=== PATIENT | female | born 1955 | race Caucasian/White ===

== ENCOUNTER → 2016-06-24 | Outpatient (REF) | payer BC ==
[~2016-06-24] MED LIST: ASPI1TAB PO; HYDR25TAB PO; LEVO100T5 PO; LEXA1TAB2 PO; LISI-542 PO; METF1000 PO; OMEP40CA2 PO; ZOCO10TA PO; ZYRT10CA PO
== END | disposition home or self-care (01) ==
LOC: M SFHCLERA 13:21
PROVIDERS: ATTEND Nurse Practitioner Family
DX: J02.9 Acute pharyngitis, unspecified (principal)

== ENCOUNTER → 2016-08-02 | Outpatient (REF) | payer BC ==
[2016-08-02 17:23] LABS: BASO % 0.6 % (0.0-1.0); EOS # 0.3 K/mm3 (0.0-0.50); LARGE UNSTAINED CELL # 0.2 K/mm3 (0.0-0.4); LARGE UNSTAINED CELL % 2.5 % (0.0-4.0); LYMPH # 2.2 K/mm3 (1.5-4.5); LYMPH % 32.3 % (24.0-44.0); MEAN CORPUSCULAR HEMOGLOBIN 28.7 pg (27.0-33.0); MEAN CORPUSCULAR HGB CONC 32.2 g/dl (32.0-36.5); MEAN CORPUSCULAR VOLUME 89.1 fl (80.0-96.0); MONO # 0.3 K/mm3 (0.0-0.8); MONO % 3.9 % (0.0-5.0); NEUTROPHILS # 3.8 K/mm3 (1.8-7.7); NEUTROPHILS % 56.6 % (36.0-66.0); PLATELET COUNT, AUTOMATED 273 k/mm3 (150-450); RED CELL DISTRIBUTION WIDTH 13.1 % (11.5-14.5); WHITE BLOOD COUNT 6.7 K/mm3 (4.0-10.0)
[2016-08-02 18:17] LABS: ALBUMIN 4.1 GM/DL (3.2-5.2); ALBUMIN/GLOBULIN RATIO 1.05 (1.00-1.93); BILIRUBIN,TOTAL 0.3 MG/DL (0.2-1.0); CALCIUM LEVEL 9.3 MG/DL (8.5-10.1); CREATININE FOR GFR 1.16 MG/DL (0.55-1.02); GLOMERULAR FILTRATION RATE 50.9 (>51); POTASSIUM SERUM 4.4 MEQ/L (3.5-5.1)
== END ==
LOC: M SFHCPLAZ 10:07
PROVIDERS: ATTEND Nurse Practitioner Family
DX: I10 Essential (primary) hypertension (principal); E03.9 Hypothyroidism, unspecified; E11.9 Type 2 diabetes mellitus without complications; E78.2 Mixed hyperlipidemia

== ENCOUNTER → 2017-01-03 | Outpatient (REF) | payer BC ==
[~2017-01-03] MED LIST changes: -METF1000 PO; +METF10004 PO
== END ==
LOC: M SFHCWAGY 13:25
PROVIDERS: ATTEND Nurse Practitioner Women's Health
DX: Z12.4 Encounter for screening for malignant neoplasm of cervix (principal); N95.2 Postmenopausal atrophic vaginitis

== ENCOUNTER → 2017-01-03 | Outpatient (CLI) | payer BC ==
--- NOTE | 2017-01-03 14:24 | REPMRS ---
Patient History The patient states she had a clinical breast exam in 01/10 Patient is postmenopausal. Family history of colorectal cancer in maternal grandmother at age 50 or over. Digital Woman Screen Mammo: January 03, 2017 - Exam #: [id number] Bilateral CC and MLO view(s) were taken. Technologist: Jane Rosario, Technologist Prior study comparison: November 17, 2015, digital woman screen mammo performed at [facility]. October 12, 2014, digital woman screen mammo performed at [facility] to [facility]. FINDINGS: There are scattered fibroglandular densities. There has been no change in the appearance of the mammogram from the prior studies. There is a mild amount of residual fibroglandular tissue which is fairly symmetric. There is no interval development of dominant mass, architectural distortion, or clustered microcalcification suggestive of malignancy. ASSESSMENT: BI-RADS/ACR category 1 mammogram. Negative. Recommendation Routine screening mammogram in 1 year (for women over age 40). This mammogram was interpreted with the aid of an FDA-approved computer-aided dectection system. Electronically Signed By: Arnaldo Delgado MD 01/03/17 0220
== END ==
LOC: M WHC 13:01
PROVIDERS: ATTEND Nurse Practitioner Women's Health
DX: Z12.31 Encounter for screening mammogram for malignant neoplasm of breast (principal)

== ENCOUNTER → 2017-02-15 | Outpatient (REF) | payer BC ==
[2017-02-15 12:26] LABS: ALBUMIN 3.9 GM/DL (3.2-5.2); BILIRUBIN,TOTAL 0.3 MG/DL (0.2-1.0); CALCIUM LEVEL 9.2 MG/DL (8.8-10.2); CREATININE FOR GFR 1.09 MG/DL (0.55-1.02); FREE T4 1.35 NG/DL (0.76-1.46); GLOMERULAR FILTRATION RATE 54.5 (>45); POTASSIUM SERUM 4.6 MEQ/L (3.5-5.1); TOTAL PROTEIN 7.8 GM/DL (6.4-8.2)
== END ==
LOC: M SFHCPLAZ 10:04
PROVIDERS: ATTEND Nurse Practitioner Family
DX: E11.9 Type 2 diabetes mellitus without complications (principal); E03.9 Hypothyroidism, unspecified; I10 Essential (primary) hypertension

== ENCOUNTER → 2017-08-26 | Outpatient (REF) | payer BC ==
[2017-08-26 18:19] LABS: ESTIMATED AVERAGE GLUCOSE 154 MG/DL (60-110)
[2017-08-26 18:24] LABS: ALBUMIN 3.7 GM/DL (3.2-5.2); ALBUMIN/GLOBULIN RATIO 0.93 (1.00-1.93); ALKALINE PHOSPHATASE 103 U/L (45-117); ALT/SGPT 54 U/L (12-78); ANION GAP 6 MEQ/L (8-16); AST/SGOT 48 U/L (7-37); BILIRUBIN,TOTAL 0.3 MG/DL (0.2-1.0); BLOOD UREA NITROGEN 14 MG/DL (7-18); CALCIUM LEVEL 8.9 MG/DL (8.8-10.2); CARBON DIOXIDE LEVEL 28 MEQ/L (21-32); CHLORIDE LEVEL 107 MEQ/L (98-107); CHOLESTEROL LEVEL 133 MG/DL (<200); CHOLESTEROL RISK RATIO 3.166 (<5); CREATININE FOR GFR 1.06 MG/DL (0.55-1.30); GLOMERULAR FILTRATION RATE 56.3 (>45); GLUCOSE, FASTING 126 MG/DL (70-100); HDL CHOLESTEROL 42 MG/DL (>40); NON-HDL-C 91 MG/DL; POTASSIUM SERUM 4.7 MEQ/L (3.5-5.1); SODIUM LEVEL 141 MEQ/L (136-145); TOTAL PROTEIN 7.7 GM/DL (6.4-8.2); TRIGLYCERIDES LEVEL 115 MG/DL (<150)
[2017-08-26 19:44] LABS: MALB URINE SIEMENS 5.4 MG/L; MAU/CREAT RATIO 5.2 MCG/MG (0.0-30.0)
== END ==
LOC: M SFHCPLAZ 10:58
DX: E11.9 Type 2 diabetes mellitus without complications (principal); E03.9 Hypothyroidism, unspecified; I10 Essential (primary) hypertension
CPT/HCPCS: 84443

== ENCOUNTER → 2018-04-03 | Outpatient (REF) | payer BC ==
[2018-04-03 13:49] LABS: ALBUMIN 3.9 GM/DL (3.2-5.2); ALKALINE PHOSPHATASE 84 U/L (45-117); ALT/SGPT 59 U/L (12-78); ANION GAP 11 MEQ/L (8-16); AST/SGOT 52 U/L (7-37); BILIRUBIN,TOTAL 0.2 MG/DL (0.2-1.0); BLOOD UREA NITROGEN 21 MG/DL (7-18); CALCIUM LEVEL 8.9 MG/DL (8.8-10.2); CARBON DIOXIDE LEVEL 24 MEQ/L (21-32); CHLORIDE LEVEL 101 MEQ/L (98-107); CREATININE FOR GFR 1.16 MG/DL (0.55-1.30); GLOMERULAR FILTRATION RATE 50.6 (>45); GLUCOSE, FASTING 120 MG/DL (70-100); POTASSIUM SERUM 4.1 MEQ/L (3.5-5.1); SODIUM LEVEL 136 MEQ/L (136-145); TOTAL PROTEIN 7.8 GM/DL (6.4-8.2)
[2018-04-03 17:20] LABS: ESTIMATED AVERAGE GLUCOSE 157 MG/DL (60-110); HEMOGLOBIN A1c 7.1 %
[2018-04-08 16:58] LABS: FREE T4 1.35 NG/DL (0.76-1.46)
== END ==
LOC: M SFHCPLAZ 09:38
DX: I10 Essential (primary) hypertension (principal); E11.9 Type 2 diabetes mellitus without complications; E03.9 Hypothyroidism, unspecified
CPT/HCPCS: 84443

== ENCOUNTER 2018-04-29 11:18 | Day surgery (SDC) | payer BC ==
[~2018-04-29 11:18] MED LIST changes: -ASPI1TAB PO; -HYDR25TAB PO; -LEVO100T5 PO; -LEXA1TAB2 PO; +LIDOCAINE 2% INJ 100 MG/5 ML SDV (FOR ANES.) As Ordered; -LISI-542 PO; -METF10004 PO; -OMEP40CA2 PO; +PROPOFOL 200 MG/20 ML VIAL As Ordered; -ZOCO10TA PO; -ZYRT10CA PO
[2018-04-29] MEDS: NS 1,000 ML IV (13:25)
== END 2018-04-29 13:50 | disposition home or self-care (01) ==
LOC: M OPP 11:18
DX: R19.4 Change in bowel habit (principal); K57.30 Diverticulosis of large intestine without perforation or abscess without bleeding; K64.8 Other hemorrhoids; K22.8 Other specified diseases of esophagus; Z87.19 Personal history of other diseases of the digestive system
CPT/HCPCS: 45378

== ENCOUNTER → 2018-06-23 | Outpatient (REF) | payer BC ==
[~2018-06-23] MED LIST changes: +ASPI1TAB PO; +HYDR12CA PO; +HYDR25TAB PO; +LEVO100T5 PO; +LEXA1TAB2 PO; -LIDOCAINE 2% INJ 100 MG/5 ML SDV (FOR ANES.) As Ordered; +LISI-542 PO; +LISI10TA4 PO; +METF10004 PO; +OMEP20CA3 PO; +OMEP40CA2 PO; -PROPOFOL 200 MG/20 ML VIAL As Ordered; +ZOCO10TA PO; +ZYRT10CA PO
[2018-06-23 13:42] LABS: BILIRUBIN,TOTAL 0.3 MG/DL (0.2-1.0); CREATININE FOR GFR 1.15 MG/DL (0.55-1.30); FREE T4 1.11 NG/DL (0.76-1.46); GLOMERULAR FILTRATION RATE 51.1 (>45); POTASSIUM SERUM 4.7 MEQ/L (3.5-5.1); THYROID STIMULATING HORMONE 11.7 uIU/ML (0.358-3.740); TOTAL PROTEIN 7.7 GM/DL (6.4-8.2)
== END ==
LOC: M SFHCPLAZ 10:02
PROVIDERS: ATTEND Family Medicine
DX: R94.4 Abnormal results of kidney function studies (principal); R74.0 Nonspecific elevation of levels of transaminase and lactic acid dehydrogenase [LDH]; E03.9 Hypothyroidism, unspecified

== ENCOUNTER → 2018-07-04 | Outpatient (CLI) | payer BC ==
--- NOTE | 2018-07-04 17:38 | REP ---
Urinary tract sonogram: History: Acute renal failure. Comparison: No comparison study. Findings: Scanning at the level of the urinary bladder shows no abnormality. Renal cortical echogenicity pattern is normal bilaterally and contours are smooth. There is no evidence of hydronephrosis, cyst, mass, or calculus in either kidney. The right kidney measures 10.6 x 5.1 x 4.8 cm. There is slight cortical thinning seen affecting the right kidney. Left renal dimensions are 11.0 x 5.1 x 5.3 cm. Impression: Some cortical atrophy suspected right kidney. No hydronephrosis seen. Otherwise negative urinary tract sonography. Electronically Signed by Diego Espinoza MD 07/04/2018 05:30 P
== END ==
LOC: M LRY 13:10
PROVIDERS: ATTEND Family Medicine
DX: E03.9 Hypothyroidism, unspecified (principal); N17.9 Acute kidney failure, unspecified

== ENCOUNTER → 2018-07-07 | Outpatient (CLI) | payer BC ==
--- NOTE | 2018-07-07 14:08 | REP ---
Low-dose lung screening CT: The studies performed without IV contrast. Images are presented at lung windowing only. There are no lung nodules or masses. There are no acute infiltrates or pleural effusions. Impression: Category [address] study of the chest. Follow-up lung screening chest CT is recommended 1 year. Electronically Signed by Arnaldo Douglass MD 07/07/2018 01:59 P
== END ==
LOC: M RAD 11:30
PROVIDERS: ATTEND Family Medicine
DX: Z87.891 Personal history of nicotine dependence (principal)

== ENCOUNTER → 2018-07-08 | Outpatient (REF) | payer BC ==
[2018-07-08 11:58] LABS: HEMATOCRIT 29.6 % (36.0-47.0); HEMOGLOBIN 8.9 g/dl (12.0-15.5); MEAN CORPUSCULAR HEMOGLOBIN 23.7 pg (27.0-33.0); MEAN CORPUSCULAR HGB CONC 30.1 g/dl (32.0-36.5); MEAN CORPUSCULAR VOLUME 78.7 fl (80.0-96.0); PLATELET COUNT, AUTOMATED 304 10^3/uL (150-450); RED BLOOD COUNT 3.76 10^6/uL (4.00-5.40); WHITE BLOOD COUNT 6.7 10^3/uL (4.0-10.0)
[2018-07-08 12:07] LABS: APPEARANCE, URINE CLEAR (CLEAR); BACTERIA, URINE AUTO NEGATIVE (NEGATIVE); BILIRUBIN, URINE AUTO NEGATIVE (NEGATIVE); BLOOD, URINE BLOOD NEGATIVE (NEGATIVE); COLOR, URINE YELLOW (YELLOW); GLUCOSE, URINE (UA) AUTO NEGATIVE (NEGATIVE); KETONE, URINE AUTO NEGATIVE (NEGATIVE); LEUKOCYTE ESTERASE, URINE AUTO NEGATIVE (NEGATIVE); MUCUS, URINE SMALL (NEGATIVE); NITRITE, URINE AUTO NEGATIVE (NEGATIVE); PROTEIN, URINE AUTO NEGATIVE (NEGATIVE); RBC, URINE AUTO 1 /HPF (0-3); SPECIFIC GRAVITY URINE AUTO 1.023 (1.002-1.035); SQUAMOUS EPITHELIAL CELL UR AU 1 /HPF (0-6); UROBILINOGEN, URINE AUTO 0.2 mg/dL (0.0-2.0); WBC, URINE AUTO 0 /HPF (0-3)
[2018-07-08 12:27] LABS: MALB URINE SIEMENS 10.8 MG/L; MAU/CREAT RATIO 5.3 MCG/MG (0.0-30.0); TOTAL PROTEIN,RANDOM URINE 18.5 MG/DL (0.0-12.0)
[2018-07-08 12:39] LABS: HEMOGLOBIN A1c 7.4 %
== END ==
LOC: M SFHCPLAZ 09:36
PROVIDERS: ATTEND Family Medicine
DX: N18.3 Chronic kidney disease, stage 3 (moderate) (principal); E11.9 Type 2 diabetes mellitus without complications

== ENCOUNTER → 2018-07-15 | Outpatient (REF) | payer BC ==
[2018-07-15 12:46] LABS: FREE T4 1.35 NG/DL (0.76-1.46); PERCENT SATURATION 6.3 % (13.2-45.0); THYROID STIMULATING HORMONE 1.75 uIU/ML (0.358-3.740)
[2018-07-15 12:57] LABS: HEMATOCRIT 30.7 % (36.0-47.0)
== END ==
LOC: M SFHCPLAZ 09:38
PROVIDERS: ATTEND Family Medicine
DX: D64.9 Anemia, unspecified (principal); E03.9 Hypothyroidism, unspecified

== ENCOUNTER → 2018-07-30 | Outpatient (REF) | payer BC ==
[2018-07-30 13:48] LABS: PERCENT SATURATION 5.1 % (13.2-45.0)
== END ==
LOC: M LAB REF 13:03
PROVIDERS: ATTEND Internal Medicine Nephrology
DX: D50.9 Iron deficiency anemia, unspecified (principal)

== ENCOUNTER → 2018-10-17 | Outpatient (REF) | payer BC ==
[~2018-10-17] MED LIST changes: -ASPI1TAB PO; +ASPI81TA26 PO; +HYDR-2541 PO; -HYDR25TAB PO
[2018-10-17 17:12] LABS: CALCIUM LEVEL 9.6 MG/DL (8.8-10.2); CREATININE FOR GFR 1.17 MG/DL (0.55-1.30); GLOMERULAR FILTRATION RATE 50.1 (>45); POTASSIUM SERUM 4.5 MEQ/L (3.5-5.1)
[2018-10-17 17:36] LABS: HEMOGLOBIN A1c 6.5 %
== END ==
LOC: M SFHCLERA 11:50
PROVIDERS: ATTEND Family Medicine
DX: E11.9 Type 2 diabetes mellitus without complications (principal); I10 Essential (primary) hypertension

== ENCOUNTER → 2019-02-23 | Outpatient (REF) | payer BC ==
[~2019-02-23] MED LIST changes: +OMEP1CAP73 PO; -OMEP20CA3 PO; -OMEP40CA2 PO; +OMEP40CA97 PO
[2019-02-23 17:04] LABS: CALCIUM LEVEL 9.1 MG/DL (8.8-10.2); CREATININE FOR GFR 1.05 MG/DL (0.55-1.30); GLOMERULAR FILTRATION RATE 56.5 (>45); POTASSIUM SERUM 4.1 MEQ/L (3.5-5.1)
[2019-02-23 17:15] LABS: HEMOGLOBIN A1c 6.1 %
== END ==
LOC: M SFHCLERA 11:37
PROVIDERS: ATTEND Family Medicine
DX: E11.22 Type 2 diabetes mellitus with diabetic chronic kidney disease (principal); N18.3 Chronic kidney disease, stage 3 (moderate)

== ENCOUNTER → 2019-03-25 | Outpatient (CLI) | payer BC ==
[~2019-03-25] MED LIST changes: -OMEP1CAP73 PO; +OMEP20CA4 PO
--- NOTE | 2019-03-25 10:36 | REPMRS ---
Patient History The patient states she had a clinical breast exam in 02/2019. Patient is postmenopausal. Family history of colorectal cancer at age 50 or over in maternal grandmother, prostate cancer at age 50 or over in brother, colorectal cancer at age 50 or over in brother. No Hormone Replacement Therapy 3D TOMOSYNTHESIS WAS PERFORMED. The [facility] lifetime risk for breast cancer is 7.0%. Digital Woman Screen Mammo: March 25, 2019 - Exam #: [id number] Bilateral CC and MLO view(s) were taken. Technologist: Sheri Marques, Technologist Prior study comparison: January 03, 2017, digital woman screen mammo performed at [facility]. November 17, 2015, digital woman screen mammo performed at [facility]. FINDINGS: There are scattered fibroglandular densities. There has been no change in the appearance of the mammogram from the prior studies. There is a mild amount of residual fibroglandular tissue which is fairly symmetric. There is no interval development of dominant mass, architectural distortion, or clustered microcalcification suggestive of malignancy. Assessment: BI-RADS/ACR category 1 mammogram. Negative Mammogram. Recommendation Routine screening mammogram in 1 year (for women over age 40). This mammogram was interpreted with the aid of an FDA-approved computer-aided dectection system. Electronically Signed By: Arnaldo Delgado MD 03/25/19 [id number]
== END ==
LOC: M WHC 09:14
PROVIDERS: ATTEND Nurse Practitioner Women's Health
DX: Z12.31 Encounter for screening mammogram for malignant neoplasm of breast (principal)

== ENCOUNTER → 2019-06-26 | Outpatient (REF) | payer BC ==
[~2019-06-26] MED LIST changes: +OMEP1CAP73 PO; -OMEP20CA4 PO
[2019-06-26 17:05] LABS: HEMATOCRIT 36.7 % (36.0-47.0); HEMOGLOBIN 11.6 g/dl (12.0-15.5); MEAN CORPUSCULAR HEMOGLOBIN 29.6 pg (27.0-33.0); MEAN CORPUSCULAR HGB CONC 31.6 g/dl (32.0-36.5); MEAN CORPUSCULAR VOLUME 93.6 fl (80.0-96.0); PLATELET COUNT, AUTOMATED 269 10^3/uL (150-450); RED BLOOD COUNT 3.92 10^6/uL (4.00-5.40); WHITE BLOOD COUNT 6.1 10^3/uL (4.0-10.0)
[2019-06-26 17:17] LABS: CALCIUM LEVEL 8.7 MG/DL (8.8-10.2); CREATININE FOR GFR 1.1 MG/DL (0.55-1.30); GLOMERULAR FILTRATION RATE 53.6 (>45); PERCENT SATURATION 16.9 % (13.2-45.0); THYROID STIMULATING HORMONE 1.15 uIU/ML (0.358-3.740)
[2019-06-26 19:01] LABS: HEMOGLOBIN A1c 6.6 %
== END ==
LOC: M SFHCPLAZ 11:29
PROVIDERS: ATTEND Family Medicine
DX: D50.9 Iron deficiency anemia, unspecified (principal); E11.22 Type 2 diabetes mellitus with diabetic chronic kidney disease; I10 Essential (primary) hypertension; E03.9 Hypothyroidism, unspecified

== ENCOUNTER → 2019-07-28 | Outpatient (CLI) | payer BC ==
--- NOTE | 2019-07-28 14:56 | REP ---
CT CHEST WITHOUT CONTRAST: Low-dose screening exam. HISTORY: Nicotine dependence. Comparison chest CT study July 07, 2018. FINDINGS: Preliminary digital assistant librarian radiograph shows clips in right upper quadrant of the abdomen. No pulmonary nodule is appreciated. There is some left coronary artery vascular calcification again noted. No other significant finding. IMPRESSION: Lung RADS category 1 findings. Repeat screening exam suggested 1 year. Electronically Signed by Diego Espinoza MD 07/28/2019 06:01 P
== END ==
LOC: M RAD 10:42
PROVIDERS: ATTEND Family Medicine
DX: Z87.891 Personal history of nicotine dependence (principal)

== ENCOUNTER → 2019-10-22 | Outpatient (CLI) | payer BC ==
[2019-10-22 18:24] LABS: CHOLESTEROL RISK RATIO 3.463 (<5); CREATININE FOR GFR 1.12 MG/DL (0.55-1.30); GLOMERULAR FILTRATION RATE 52.5 (>45); POTASSIUM SERUM 4.3 MEQ/L (3.5-5.1)
[2019-10-22 18:28] LABS: HEMATOCRIT 37.1 % (36.0-47.0); HEMOGLOBIN 11.5 g/dl (12.0-15.5); MEAN CORPUSCULAR HEMOGLOBIN 29.1 pg (27.0-33.0); MEAN CORPUSCULAR VOLUME 93.9 fl (80.0-96.0); PLATELET COUNT, AUTOMATED 271 10^3/uL (150-450); RED BLOOD COUNT 3.95 10^6/uL (4.00-5.40); WHITE BLOOD COUNT 6.5 10^3/uL (4.0-10.0)
== END ==
LOC: M WUC 12:17
PROVIDERS: ATTEND Family Medicine
DX: D50.9 Iron deficiency anemia, unspecified (principal); I12.9 Hypertensive chronic kidney disease with stage 1 through stage 4 chronic kidney disease, or unspecified chronic kidney disease; E11.22 Type 2 diabetes mellitus with diabetic chronic kidney disease; N18.9 Chronic kidney disease, unspecified; E78.2 Mixed hyperlipidemia

== ENCOUNTER → 2020-02-29 | Outpatient (CLI) | payer BC ==
[2020-02-29 14:19] LABS: HEMATOCRIT 36.2 % (36.0-47.0); HEMOGLOBIN 11.6 g/dl (12.0-15.5); MEAN CORPUSCULAR HEMOGLOBIN 29.4 pg (27.0-33.0); MEAN CORPUSCULAR VOLUME 91.9 fl (80.0-96.0); PLATELET COUNT, AUTOMATED 235 10^3/uL (150-450); RED BLOOD COUNT 3.94 10^6/uL (4.00-5.40); WHITE BLOOD COUNT 5.6 10^3/uL (4.0-10.0)
[2020-02-29 15:05] LABS: ALBUMIN 3.8 GM/DL (3.2-5.2); BILIRUBIN,TOTAL 0.3 MG/DL (0.2-1.0); CALCIUM LEVEL 9.1 MG/DL (8.8-10.2); CREATININE FOR GFR 1.08 MG/DL (0.55-1.30); GLOMERULAR FILTRATION RATE 54.5 (>45); POTASSIUM SERUM 3.9 MEQ/L (3.5-5.1); THYROID STIMULATING HORMONE 3.45 uIU/ML (0.358-3.740); TOTAL PROTEIN 7.7 GM/DL (6.4-8.2)
[2020-02-29 15:45] LABS: HEMOGLOBIN A1c 6.8 %
--- NOTE | 2020-03-05 13:46 | REPPI ---
SACROILIAC JOINTS HISTORY: Bilateral sacroiliitis. TECHNIQUE: Four views of the bilateral sacroiliac joints performed in the AP and oblique projections. FINDINGS: I do not see significant arthritic change at either sacroiliac joint. There is no significant joint space narrowing. There is nonsignificant sclerotic change along the joints. IMPRESSION: Negative exam bilateral sacroiliac joints. MTDD
== END ==
LOC: M PLAIMG 12:34
PROVIDERS: ATTEND Family Medicine
DX: E03.9 Hypothyroidism, unspecified (principal); D50.9 Iron deficiency anemia, unspecified; E11.22 Type 2 diabetes mellitus with diabetic chronic kidney disease; I10 Essential (primary) hypertension; M46.1 Sacroiliitis, not elsewhere classified; M25.552 Pain in left hip; M25.551 Pain in right hip

== ENCOUNTER → 2020-03-28 | Outpatient (CLI) | payer BC ==
--- NOTE | 2020-03-28 14:04 | REP ---
INDICATION: SCREENING MAMMO. COMPARISON: 03/25/2019 as well as other prior exams. TECHNIQUE: Digital screening (2D) mammography was performed bilaterally. Additionally, breast tomosynthesis (3D mammography) was performed bilaterally in the CC and MLO projections and compared to the prior exam(s). FINDINGS: Very mild scattered fibroglandular tissue is seen bilaterally. Volpara breast density is a. A smoothly marginated nodule is seen centrally in the mid right breast. No other mass is seen. There are no suspicious clusters of microcalcifications. [facility] lifetime risk of breast cancer 6.7%. IMPRESSION: BI-RADS category 0 incomplete mammogram. There is a well-defined nodule centrally in the right breast. This measures 7 mm in diameter. Recommend spot compression views and ultrasound to further evaluate. This mammogram was read with the assistance of Venda, an FDA approved computer aided detection system for mammography. Negative x-ray reports should not delay surgical consultation if a dominant or clinically suspicious mass is present. Not all breast cancers can be identified by mammography. Therefore, we recommend that you continue to perform regular breast self-examination and physical examination and then promptly contact your physician of any concerns or changes. Adenosis and dense breasts may obscure an underlying neoplasm. Request patient letter M0. <Electronically signed by Arnaldo Delgado > 03/28/20 1400
== END ==
LOC: M WHC 11:07
PROVIDERS: ATTEND Nurse Practitioner Women's Health
DX: Z12.31 Encounter for screening mammogram for malignant neoplasm of breast (principal)

== ENCOUNTER → 2020-03-28 | Outpatient (REF) | payer BC | LOC: M SFHCWAGY 12:52 | PROVIDERS: ATTEND Nurse Practitioner Women's Health | DX: Z12.4 Encounter for screening for malignant neoplasm of cervix (principal); N95.2 Postmenopausal atrophic vaginitis | CPT/HCPCS: 87624; G0123 ==

== ENCOUNTER → 2020-04-01 | Outpatient (CLI) | payer BC ==
--- NOTE | 2020-04-01 13:34 | REP ---
INDICATION: ADDITIONAL VIEWS RT BREAST. COMPARISON: 03/28/2020 as well as other prior exams. TECHNIQUE: Spot compression views right breast performed as well as a right mL tomographic sequence. Focused right breast ultrasound performed at 12 o'clock right breast. FINDINGS: There is a persistent nodule at 12 o'clock position right breast in the mid 3rd. This measures approximately 6-7 mm in diameter. It is partially well-circumscribed and partially ill-defined. Real-time sonographic evaluation of 12 o'clock region right breast demonstrates an oval slightly lobulated cystic structure at 12 o'clock approximately 5-6 cm from the nipple. This measures 6 x 5 x 3 mm. There are mild internal low-level echoes. IMPRESSION: BIRADS/ACR category 3 probably benign. Persistent subcentimeter nodule 12 o'clock right breast corresponds to a slightly complex cystic structure measuring 6 x 5 x 3 mm by ultrasound. This is probably benign. Recommend follow-up ultrasound right breast in 6 months. This mammogram was interpreted with the aid of an FDA-approved computer-aided detection system. The patient letter being requested is M3. RECOMMENDATION: Recommend follow-up ultrasound right breast 6 months. <Electronically signed by Arnaldo Delgado > 04/01/20 [id number]
== END ==
LOC: M WHC 11:11
PROVIDERS: ATTEND Nurse Practitioner Women's Health
DX: R92.8 Other abnormal and inconclusive findings on diagnostic imaging of breast (principal); N63.20 Unspecified lump in the left breast, unspecified quadrant

== ENCOUNTER → 2020-04-12 | Outpatient (CLI) | payer SELFPAY | LOC: M LABSMTC 11:53 | PROVIDERS: ATTEND Pediatrics | DX: Z20.828 Contact with and (suspected) exposure to other viral communicable diseases (principal) ==

== ENCOUNTER → 2020-06-30 | Outpatient (CLI) | payer BC ==
--- NOTE | 2020-07-01 03:16 | REP ---
INDICATION: PAIN COMPARISON: None. TECHNIQUE: AP, lateral, bilateral oblique views left wrist. FINDINGS: Generalized age-related changes are appreciated. No evidence for acute or healed injury. No significant soft tissue swelling suggested. No subcutaneous emphysema or foreign body. IMPRESSION: Generalized age-related changes. No evidence for acute or healed injury. <Electronically signed by Jeffry Chow > 07/01/20 1530
== END ==
LOC: M WUC 13:12
PROVIDERS: ATTEND Physician Assistant
DX: M25.532 Pain in left wrist (principal)

== ENCOUNTER → 2020-07-08 | Outpatient (REF) | payer BC ==
[~2020-07-08] MED LIST changes: -LISI-542 PO; +LISI-898 PO; +LISI10TA22 PO; -LISI10TA4 PO
[2020-07-08 14:17] LABS: HEMOGLOBIN A1c 6.4 %
== END ==
LOC: M PLALAB 11:47
PROVIDERS: ATTEND Family Medicine
DX: E11.22 Type 2 diabetes mellitus with diabetic chronic kidney disease (principal)

== ENCOUNTER → 2020-08-17 | Outpatient (CLI) | payer BC ==
--- NOTE | 2020-08-17 15:26 | REP ---
INDICATION: CIGARETTE NICOTINE DEPENDENCE, LUNG CA SCREENING. COMPARISON: Comparison screening chest CT studies July 28, 2019 and July 07, 2018.. TECHNIQUE: Dose reduction was performed utilizing CARE dose with automated adjustment of the kV and MAS according to patient size; iterative reconstruction, automated exposure control, as well as adaptive dose shielding. Low-dose screening exam. Helical scanning is acquired and 3 mm axial images are provided at lung only windows. FINDINGS: Preliminary responder radiograph remains unremarkable except for surgical clips in right upper quadrant. Lung vickers are clear. There is no evidence of pulmonary mass, infiltrate, atelectasis, or significant pulmonary nodule. There is some mild vascular calcification. IMPRESSION: Lung RADS category 1 findings. Repeat screening exam suggested in 1 year. <Electronically signed by Stalin Espinoza > 08/17/20 0532
== END ==
LOC: M RAD 13:07
PROVIDERS: ATTEND Family Medicine
DX: Z12.2 Encounter for screening for malignant neoplasm of respiratory organs (principal); F17.210 Nicotine dependence, cigarettes, uncomplicated

== ENCOUNTER → 2020-10-06 | Outpatient (CLI) | payer BC ==
--- NOTE | 2020-10-06 13:30 | REP ---
INDICATION: N60.01 CYST RT BREAST,R92.8 F/U CAT 3 RESULTS. COMPARISON: Ultrasound examination of 04/01/2020 TECHNIQUE: Ultrasonography of the right breast was performed at the 12 o'clock position in the same fashion as the prior exam. FINDINGS: The small suspected slightly complex cyst seen previously at the 12 o'clock position has gotten smaller now having a maximal dimension of 3 mm and is now completely anechoic. IMPRESSION: ACR category 2 benign right breast ultrasound. Routine bilateral screening mammography is recommended minutes regularly scheduled annual interval. <Electronically signed by David Cobos > 10/06/20 3802
== END ==
LOC: M WHC 11:22
PROVIDERS: ATTEND Nurse Practitioner Women's Health
DX: N60.01 Solitary cyst of right breast (principal); R92.8 Other abnormal and inconclusive findings on diagnostic imaging of breast

== ENCOUNTER → 2020-11-07 | Outpatient (REF) | payer BC ==
[2020-11-07 15:08] LABS: HEMOGLOBIN A1c 6.2 %
== END ==
LOC: M PLALAB 10:27
PROVIDERS: ATTEND Family Medicine
DX: E11.22 Type 2 diabetes mellitus with diabetic chronic kidney disease (principal)

== ENCOUNTER → 2020-12-07 | Outpatient (REF) | payer BC ==
[~2020-12-07] MED LIST changes: +OMEP40CA4 PO; -OMEP40CA97 PO
== END ==
LOC: M LAB REF 17:21
PROVIDERS: ATTEND Nurse Practitioner Family
DX: E83.42 Hypomagnesemia (principal)

== ENCOUNTER → 2021-03-03 | Outpatient (CLI) | payer BC ==
[2021-03-03 15:49] LABS: CHOLESTEROL RISK RATIO 3.422 (<5)
[2021-03-03 16:32] LABS: HEMOGLOBIN A1c 6.2 %
== END ==
LOC: M PLALAB 11:19
PROVIDERS: ATTEND Family Medicine
DX: E78.2 Mixed hyperlipidemia (principal)

== ENCOUNTER → 2021-03-09 | Outpatient (CLI) | payer BC | LOC: M PLALAB 10:02 | PROVIDERS: ATTEND Family Medicine | DX: E03.9 Hypothyroidism, unspecified (principal) ==

== ENCOUNTER → 2021-03-10 | Outpatient (REF) | payer BC ==
[2021-03-10 18:26] LABS: PERCENT SATURATION 15.8 % (13.2-45.0)
== END ==
LOC: M LAB REF 17:27
PROVIDERS: ATTEND Nurse Practitioner Family
DX: D50.9 Iron deficiency anemia, unspecified (principal)

== ENCOUNTER → 2021-03-29 | Outpatient (CLI) | payer BC ==
--- NOTE | 2021-03-29 14:04 | REPMRS ---
Patient History The patient states she had a clinical breast exam 03-29-2021. Family history of colorectal cancer at age 50 or over in maternal grandmother, prostate cancer at age 50 or over in brother, colorectal cancer at age 50 or over in brother. No Hormone Replacement Therapy Tomosynthesis is performed. Volpara breast density is a. [facility] lifetime risk of breast cancer 6.4%. Patient states no breast complaints today. Patient has signed MRS History Sheet. Digital Woman Screen Mammo: March 29, 2021 - Exam #: [id number] Bilateral CC and MLO view(s) were taken. Technologist: Sybil Sanabria Utility Tractor Operator Prior study comparison: April 01, 2020, right breast diagnostic unilateral mammo performed at [facility]. March 28, 2020, bilateral digital woman screen mammo performed at [facility]. FINDINGS: There are scattered fibroglandular densities. There has been no change in the appearance of the mammogram from the prior studies. There is a mild amount of residual fibroglandular tissue which is fairly symmetric. There is no interval development of dominant mass, architectural distortion, or clustered microcalcification suggestive of malignancy. Assessment: BI-RADS/ACR category 1 mammogram. Negative Mammogram. Recommendation Routine screening mammogram in 1 year (for women over age 40). This mammogram was interpreted with the aid of an FDA-approved computer-aided dectection system. Electronically Signed By: Arnaldo Delgado MD 03/29/21 8984
== END ==
LOC: M WHC 11:02
PROVIDERS: ATTEND Nurse Practitioner Women's Health
DX: Z12.31 Encounter for screening mammogram for malignant neoplasm of breast (principal)

== ENCOUNTER → 2021-06-23 | Outpatient (CLI) | payer BC ==
[~2021-06-23] MED LIST changes: -LISI-898 PO; +LISI5TAB11 PO
== END ==
LOC: M RAD 13:58
PROVIDERS: ATTEND Nurse Practitioner Family
DX: N18.31 Chronic kidney disease, stage 3a (principal)

== ENCOUNTER → 2021-08-16 | Outpatient (CLI) | payer BC ==
[~2021-08-16] MED LIST changes: +CETI-25 PO
== END ==
LOC: M LABSMTC 09:38
PROVIDERS: ATTEND Anesthesiology
DX: Z01.818 Encounter for other preprocedural examination (principal); Z11.52 Encounter for screening for COVID-19

== ENCOUNTER 2021-08-21 06:59 | Day surgery (SDC) | payer BC ==
[~2021-08-21] VITALS: Ht 157.5 cm; Wt 91.4 kg
[~2021-08-21 06:59] MED LIST changes: +LIDOCAINE 2% 100MG/5ML SDV (FOR ANES.) As Ordered ONE; +NS 1,000 ML IV ONE; +fentaNYL 100 MCG/2 ML INJECTION As Ordered ONE; +propofoL 200 MG/20 ML VIAL As Ordered ONE
[2021-08-21 08:42] VITALS: BP 123/74
== END 2021-08-21 08:43 | disposition home or self-care (01) ==
LOC: M OPP 06:59
PROVIDERS: ATTEND Internal Medicine Gastroenterology
DX: K22.70 Barrett's esophagus without dysplasia (principal); K22.89 Other specified disease of esophagus; Z80.0 Family history of malignant neoplasm of digestive organs; Z80.42 Family history of malignant neoplasm of prostate; Z79.82 Long term (current) use of aspirin; Z79.84 Long term (current) use of oral hypoglycemic drugs; Z79.899 Other long term (current) drug therapy; Z88.5 Allergy status to narcotic agent
CPT/HCPCS: 43239; 88305; J3010

== ENCOUNTER → 2021-09-11 | Outpatient (CLI) | payer BC ==
[~2021-09-11] MED LIST changes: -LIDOCAINE 2% 100MG/5ML SDV (FOR ANES.) As Ordered ONE; -NS 1,000 ML IV ONE; -fentaNYL 100 MCG/2 ML INJECTION As Ordered ONE; -propofoL 200 MG/20 ML VIAL As Ordered ONE
[2021-09-11 15:46] LABS: HEMOGLOBIN A1c 6.2 %
== END ==
LOC: M PLALAB 12:15
PROVIDERS: ATTEND Family Medicine
DX: E11.22 Type 2 diabetes mellitus with diabetic chronic kidney disease (principal)

== ENCOUNTER → 2022-03-14 | Outpatient (CLI) | payer MEDICARE ==
[~2022-03-14] MED LIST changes: +SIMV-252 PO; -ZOCO10TA PO
[2022-03-14 13:47] LABS: BASO # 0.1 10^3/uL (0.0-0.2); BASO % 1.3 % (0.0-1.0); EOS # 0.3 10^3/uL (0.0-0.5); EOS % 3.8 % (0.0-3.0); HEMOGLOBIN 11.9 g/dl (12.0-15.5); LYMPH # 2.5 10^3/uL (1.5-5.0); LYMPH % 34.6 % (24.0-44.0); MEAN CORPUSCULAR HGB CONC 32.2 g/dl (32.0-36.5); MEAN CORPUSCULAR VOLUME 90.2 fl (80.0-96.0); MONO # 0.4 10^3/uL (0.0-0.8); MONO % 5.3 % (2.0-8.0); NEUTROPHILS # 3.9 10^3/uL (1.5-8.5); NEUTROPHILS % 54.3 % (36.0-66.0); PLATELET COUNT, AUTOMATED 221 10^3/uL (150-450); WHITE BLOOD COUNT 7.2 10^3/uL (4.0-10.0)
[2022-03-14 14:22] LABS: BILIRUBIN,TOTAL 0.4 MG/DL (0.2-1.0); CALCIUM LEVEL 9.2 MG/DL (8.8-10.2); CHOLESTEROL RISK RATIO 3.148 (<5); CREATININE FOR GFR 1.01 MG/DL (0.55-1.30); FREE T4 1.22 NG/DL (0.76-1.46); GLOMERULAR FILTRATION RATE 58.6 (>45); POTASSIUM SERUM 4.2 MEQ/L (3.5-5.1); THYROID STIMULATING HORMONE 4.18 uIU/ML (0.358-3.740)
[2022-03-14 14:31] LABS: HEMOGLOBIN A1c 6.1 %
== END ==
LOC: M PLALAB 11:32
PROVIDERS: ATTEND Physician Assistant
DX: I10 Essential (primary) hypertension (principal)

== ENCOUNTER → 2022-04-26 | Outpatient (CLI) | payer MEDICARE | LOC: M WHC 09:06 | PROVIDERS: ATTEND Physician Assistant | DX: Z12.31 Encounter for screening mammogram for malignant neoplasm of breast (principal) ==

== ENCOUNTER → 2022-06-14 | Outpatient (CLI) | payer MEDICARE | LOC: M RAD 10:55 | PROVIDERS: ATTEND Physician Assistant | DX: F17.210 Nicotine dependence, cigarettes, uncomplicated (principal) ==

== ENCOUNTER 2022-07-06 12:46 | Emergency (ER) | payer MEDICARE ==
[~2022-07-06] VITALS: Ht 157.5 cm; Wt 95.0 kg
[2022-07-06 12:48] VITALS: BP 147/83
== END 2022-07-06 16:29 | disposition home or self-care (01) ==
LOC: M ED 12:46
DX: S29.011A Strain of muscle and tendon of front wall of thorax, initial encounter (principal); S40.012A Contusion of left shoulder, initial encounter; W01.0XXA Fall on same level from slipping, tripping and stumbling without subsequent striking against object, initial encounter; Y92.410 Unspecified street and highway as the place of occurrence of the external cause; E11.9 Type 2 diabetes mellitus without complications; I10 Essential (primary) hypertension; E03.9 Hypothyroidism, unspecified; F32.A Depression, unspecified; K21.9 Gastro-esophageal reflux disease without esophagitis; Z88.5 Allergy status to narcotic agent; Z79.890 Hormone replacement therapy; Z79.899 Other long term (current) drug therapy

== ENCOUNTER → 2022-08-29 | Outpatient (REF) | payer MEDICARE | LOC: M PLALAB 13:10 | PROVIDERS: ATTEND Nurse Practitioner Family | DX: Z12.4 Encounter for screening for malignant neoplasm of cervix (principal); N95.2 Postmenopausal atrophic vaginitis | CPT/HCPCS: 87624; G0123 ==

== ENCOUNTER → 2022-10-16 | Outpatient (REF) | payer MEDICARE | LOC: M SFHCPLAZ 17:06 | PROVIDERS: ATTEND Physician Assistant | DX: J02.9 Acute pharyngitis, unspecified (principal); R09.82 Postnasal drip; R05.1 Acute cough ==

== ENCOUNTER → 2023-01-17 | Outpatient (CLI) | payer MEDICARE ==
[~2023-01-17] MED LIST changes: +PROHANCE 279.3MG/ML 5ML VIAL ONE
== END ==
LOC: M PLAIMG 14:00
PROVIDERS: ATTEND Physician Assistant
DX: H57.11 Ocular pain, right eye (principal)
CPT/HCPCS: 70543; A9576

== ENCOUNTER → 2023-01-21 | Outpatient (CLI) | payer MEDICARE ==
[~2023-01-21] MED LIST changes: -PROHANCE 279.3MG/ML 5ML VIAL ONE
[2023-01-21 16:05] LABS: HEMATOCRIT 36.3 % (36.0-47.0); HEMOGLOBIN 11.6 g/dl (12.0-15.5); MEAN CORPUSCULAR HEMOGLOBIN 29.5 pg (27.0-33.0); MEAN CORPUSCULAR VOLUME 92.4 fl (80.0-96.0); PLATELET COUNT, AUTOMATED 243 10^3/uL (150-450); RED BLOOD COUNT 3.93 10^6/uL (4.00-5.40); WHITE BLOOD COUNT 7.7 10^3/uL (4.0-10.0)
== END ==
LOC: M PLALAB 14:13
PROVIDERS: ATTEND Physician Assistant Medical
DX: K62.5 Hemorrhage of anus and rectum (principal)

== ENCOUNTER → 2023-02-04 | Outpatient (CLI) | payer MEDICARE | LOC: M PLALAB 12:13 | PROVIDERS: ATTEND Physician Assistant | DX: M31.6 Other giant cell arteritis (principal) ==

== ENCOUNTER → 2023-03-20 | Outpatient (CLI) | payer MEDICARE ==
[~2023-03-20] MED LIST changes: +AMLO1TAB24 PO; +LEVO112T2 PO; +OMEP40CA5 PO
[2023-03-20 14:12] LABS: BASO # 0.1 10^3/uL (0.0-0.2); BASO % 1.5 % (0.0-1.0); EOS # 0.3 10^3/uL (0.0-0.5); EOS % 4.2 % (0.0-3.0); HEMATOCRIT 35.6 % (36.0-47.0); HEMOGLOBIN 11.4 g/dl (12.0-15.5); LYMPH # 1.9 10^3/uL (1.5-5.0); LYMPH % 23.8 % (24.0-44.0); MEAN CORPUSCULAR HEMOGLOBIN 29.7 pg (27.0-33.0); MEAN CORPUSCULAR VOLUME 92.7 fl (80.0-96.0); MONO # 0.4 10^3/uL (0.0-0.8); MONO % 5.6 % (2.0-8.0); NEUTROPHILS # 5.1 10^3/uL (1.5-8.5); NEUTROPHILS % 64.5 % (36.0-66.0); PLATELET COUNT, AUTOMATED 265 10^3/uL (150-450); RED BLOOD COUNT 3.84 10^6/uL (4.00-5.40); WHITE BLOOD COUNT 7.9 10^3/uL (4.0-10.0)
[2023-03-20 14:15] LABS: THYROID STIMULATING HORMONE 18.771 uIU/ML (0.55-4.78)
[2023-03-20 14:16] LABS: FERRITIN 28.5 NG/ML (7.3-270.7); FREE T4 1.05 NG/DL (0.89-1.76)
[2023-03-20 14:18] LABS: ALBUMIN 3.9 G/DL (3.2-5.2); ALKALINE PHOSPHATASE 78 U/L (46-116); ALT/SGPT 49 U/L (7.0-40); AST/SGOT 57 U/L (<34); BILIRUBIN,TOTAL 0.4 MG/DL (0.3-1.2); BLOOD UREA NITROGEN 17 MG/DL (9-23); CALCIUM LEVEL 8.8 MG/DL (8.3-10.6); CARBON DIOXIDE LEVEL 24 MMOL/L (20-31); CHLORIDE LEVEL 103 MMOL/L (98-107); CHOLESTEROL LEVEL 143 MG/DL (<200); CHOLESTEROL RISK RATIO 3.71 (<5); CREATININE FOR GFR 0.91 MG/DL (0.55-1.30); GLOMERULAR FILTRATION RATE > 60.0 (>45); GLUCOSE, FASTING 213 MG/DL (74-106); HDL CHOLESTEROL 38.5 MG/DL (>40); LDL CHOLESTEROL 66.5 MG/DL (<100); MAGNESIUM LEVEL 1.5 MG/DL (1.8-2.4); NON-HDL-C 104.5 MG/DL; POTASSIUM SERUM 4.1 MMOL/L (3.5-5.1); SODIUM LEVEL 140 MMOL/L (136-145); TOTAL PROTEIN 7.5 G/DL (5.7-8.2); TRIGLYCERIDES LEVEL 190 MG/DL (<150)
[2023-03-20 14:36] LABS: HEMOGLOBIN A1c 7.5 % (4.0-6.0)
== END ==
LOC: M PLALAB 10:07
PROVIDERS: ATTEND Physician Assistant
DX: E03.9 Hypothyroidism, unspecified (principal); I10 Essential (primary) hypertension; E66.9 Obesity, unspecified; E78.2 Mixed hyperlipidemia; D50.9 Iron deficiency anemia, unspecified; E11.22 Type 2 diabetes mellitus with diabetic chronic kidney disease

== ENCOUNTER → 2023-04-30 | Outpatient (CLI) | payer MEDICARE | LOC: M WHC 10:31 | PROVIDERS: ATTEND Physician Assistant | DX: Z12.31 Encounter for screening mammogram for malignant neoplasm of breast (principal); M81.0 Age-related osteoporosis without current pathological fracture ==

== ENCOUNTER → 2023-08-26 | Outpatient (CLI) | payer MEDICARE | LOC: M RAD 10:58 | PROVIDERS: ATTEND Physician Assistant | DX: Z87.891 Personal history of nicotine dependence (principal) ==

== ENCOUNTER → 2023-09-11 | Outpatient (CLI) | payer MEDICARE ==
[2023-09-11 15:46] LABS: IRON (FE) 38 UG/DL (50-170); PERCENT SATURATION 9.1 % (13.2-45.0); TOTAL IRON BINDING CAPACITY 416 UG/DL (250-425)
[2023-09-11 15:47] LABS: ALKALINE PHOSPHATASE 81 U/L (46-116); ALT/SGPT 42 U/L (7.0-40); AST/SGOT 51 U/L (<34); BILIRUBIN,TOTAL 0.5 MG/DL (0.3-1.2); BLOOD UREA NITROGEN 20 MG/DL (9-23); CALCIUM LEVEL 9.4 MG/DL (8.3-10.6); CARBON DIOXIDE LEVEL 25 MMOL/L (20-31); CHLORIDE LEVEL 103 MMOL/L (98-107); CREATININE FOR GFR 0.97 MG/DL (0.55-1.30); FERRITIN 8.9 NG/ML (7.3-270.7); GLOMERULAR FILTRATION RATE > 60.0 (>45); GLUCOSE, FASTING 163 MG/DL (74-106); MAGNESIUM LEVEL 1.6 MG/DL (1.8-2.4); POTASSIUM SERUM 4.3 MMOL/L (3.5-5.1); SODIUM LEVEL 138 MMOL/L (136-145); TOTAL PROTEIN 7.4 G/DL (5.7-8.2)
[2023-09-11 15:48] LABS: FREE T4 1.06 NG/DL (0.89-1.76); THYROID STIMULATING HORMONE 10.481 uIU/ML (0.55-4.78)
[2023-09-11 16:05] LABS: BASO # 0.1 10^3/uL (0.0-0.2); BASO % 1.5 % (0.0-1.0); EOS # 0.3 10^3/uL (0.0-0.5); EOS % 3.4 % (0.0-3.0); HEMATOCRIT 33.9 % (36.0-47.0); HEMOGLOBIN 10.6 g/dl (12.0-15.5); LYMPH # 1.8 10^3/uL (1.5-5.0); LYMPH % 24.4 % (24.0-44.0); MEAN CORPUSCULAR HEMOGLOBIN 27.5 pg (27.0-33.0); MEAN CORPUSCULAR HGB CONC 31.3 g/dl (32.0-36.5); MEAN CORPUSCULAR VOLUME 88.1 fl (80.0-96.0); MONO # 0.4 10^3/uL (0.0-0.8); MONO % 5.7 % (2.0-8.0); NEUTROPHILS # 4.8 10^3/uL (1.5-8.5); NEUTROPHILS % 64.7 % (36.0-66.0); PLATELET COUNT, AUTOMATED 265 10^3/uL (150-450); RED BLOOD COUNT 3.85 10^6/uL (4.00-5.40); WHITE BLOOD COUNT 7.4 10^3/uL (4.0-10.0)
== END ==
LOC: M PLALAB 12:01
PROVIDERS: ATTEND Physician Assistant
DX: E03.9 Hypothyroidism, unspecified (principal); D50.9 Iron deficiency anemia, unspecified

== ENCOUNTER → 2023-09-24 | Outpatient (REF) | payer MEDICARE | LOC: M SFHCPLAZ 14:52 | PROVIDERS: ATTEND Physician Assistant | DX: R09.81 Nasal congestion (principal) ==

== ENCOUNTER → 2023-12-03 | Outpatient (CLI) | payer MEDICARE ==
[2023-12-03 15:09] LABS: ALBUMIN 3.9 G/DL (3.2-5.2); ALKALINE PHOSPHATASE 85 U/L (46-116); ALT/SGPT 41 U/L (7.0-40); AST/SGOT 41 U/L (<34); BILIRUBIN,DIRECT 0.2 MG/DL (<0.4); BILIRUBIN,TOTAL 0.5 MG/DL (0.3-1.2); BLOOD UREA NITROGEN 18 MG/DL (9-23); CREATININE FOR GFR 0.92 MG/DL (0.55-1.30); GLOMERULAR FILTRATION RATE > 60.0 (>45); TOTAL PROTEIN 7.5 G/DL (5.7-8.2)
== END ==
LOC: M PLALAB 11:23
PROVIDERS: ATTEND Physician Assistant Medical
DX: D50.9 Iron deficiency anemia, unspecified (principal); R74.01 Elevation of levels of liver transaminase levels

== ENCOUNTER → 2023-12-06 | Outpatient (CLI) | payer MEDICARE ==
[~2023-12-06] MED LIST changes: +GLUCAGON INJ 1MG VIAL As Ordered ONE; +ISOVUE-370 76% 100ML VIAL As Ordered ONE; +NEULUMEX 0.1% SUSPENSION 450ML BOTTLE (FORMERLY VOLUMEN) As Ordered ONE
== END ==
LOC: M RAD 07:49
PROVIDERS: ATTEND Physician Assistant Medical
DX: D50.9 Iron deficiency anemia, unspecified (principal)
CPT/HCPCS: 74177; J1610; Q9967

== ENCOUNTER → 2024-02-12 | Outpatient (CLI) | payer MEDICARE ==
[~2024-02-12] MED LIST changes: -GLUCAGON INJ 1MG VIAL As Ordered ONE; -ISOVUE-370 76% 100ML VIAL As Ordered ONE; -NEULUMEX 0.1% SUSPENSION 450ML BOTTLE (FORMERLY VOLUMEN) As Ordered ONE
[2024-02-12 13:38] LABS: BASO # 0.1 10^3/uL (0.0-0.2); BASO % 1.1 % (0.0-1.0); EOS # 0.3 10^3/uL (0.0-0.5); EOS % 3.9 % (0.0-3.0); HEMATOCRIT 34.8 % (36.0-47.0); HEMOGLOBIN 10.9 g/dl (12.0-15.5); LYMPH # 2.1 10^3/uL (1.5-5.0); LYMPH % 28.7 % (24.0-44.0); MEAN CORPUSCULAR HEMOGLOBIN 27.2 pg (27.0-33.0); MEAN CORPUSCULAR HGB CONC 31.3 g/dl (32.0-36.5); MEAN CORPUSCULAR VOLUME 86.8 fl (80.0-96.0); MONO # 0.4 10^3/uL (0.0-0.8); MONO % 6.2 % (2.0-8.0); NEUTROPHILS # 4.3 10^3/uL (1.5-8.5); NEUTROPHILS % 59.8 % (36.0-66.0); PLATELET COUNT, AUTOMATED 242 10^3/uL (150-450); RED BLOOD COUNT 4.01 10^6/uL (4.00-5.40); WHITE BLOOD COUNT 7.1 10^3/uL (4.0-10.0)
[2024-02-12 13:54] LABS: HEMOGLOBIN A1c 7.3 % (4.0-6.0)
[2024-02-12 14:08] LABS: CALCIUM LEVEL 9.4 MG/DL (8.3-10.6); CREATININE FOR GFR 1.01 MG/DL (0.55-1.30); GLOMERULAR FILTRATION RATE 58.2 (>45); POTASSIUM SERUM 4.7 MMOL/L (3.5-5.1)
[2024-02-12 14:09] LABS: PERCENT SATURATION 11.8 % (13.2-45.0)
[2024-02-12 14:11] LABS: FERRITIN 10.9 NG/ML (7.3-270.7); FREE T4 1.29 NG/DL (0.89-1.76); THYROID STIMULATING HORMONE 9.92 uIU/ML (0.55-4.78)
== END ==
LOC: M PLALAB 11:39
PROVIDERS: ATTEND Physician Assistant
DX: D50.9 Iron deficiency anemia, unspecified (principal); E11.22 Type 2 diabetes mellitus with diabetic chronic kidney disease; E03.9 Hypothyroidism, unspecified

== ENCOUNTER 2024-03-24 08:44 | Day surgery (SDC) | payer MEDICARE ==
[~2024-03-24] VITALS: Ht 157.5 cm; Wt 92.0 kg
[~2024-03-24 08:44] MED LIST changes: +NS 250 ML IV ONE; +SYNT125T PO
[2024-03-24] MEDS ORDERED: propofoL 500 MG/50 ML VIAL As Ordered ONE (09:27)
[2024-03-24] MEDS ORDERED: LIDOCAINE 2% 100MG/5ML SDV (FOR ANES.) As Ordered ONE (09:27)
[2024-03-24] MEDS ORDERED: fentaNYL 100 MCG/2 ML INJECTION As Ordered ONE (09:46)
[2024-03-24] MEDS ORDERED: ONDANSETRON 4MG 2ML VIAL As Ordered ONE (10:09)
[2024-03-24] MEDS ORDERED: ePHEDrine SULFATE 25 MG/5 ML(5MG/ML) SYRINGE As Ordered ONE (10:21)
[2024-03-24 10:42] VITALS: TEMP 98.9
[2024-03-24 11:00] VITALS: BP 111/66; O2SAT 97
== END 2024-03-24 11:10 | disposition home or self-care (01) ==
LOC: M OPP 08:44
PROVIDERS: ATTEND Internal Medicine Gastroenterology
DX: K29.50 Unspecified chronic gastritis without bleeding (principal); D50.9 Iron deficiency anemia, unspecified; K57.30 Diverticulosis of large intestine without perforation or abscess without bleeding; K64.8 Other hemorrhoids; K22.89 Other specified disease of esophagus; I12.9 Hypertensive chronic kidney disease with stage 1 through stage 4 chronic kidney disease, or unspecified chronic kidney disease; E78.5 Hyperlipidemia, unspecified; E11.9 Type 2 diabetes mellitus without complications; E03.9 Hypothyroidism, unspecified; K21.9 Gastro-esophageal reflux disease without esophagitis; K22.70 Barrett's esophagus without dysplasia; F32.A Depression, unspecified; N18.30 Chronic kidney disease, stage 3 unspecified; G47.33 Obstructive sleep apnea (adult) (pediatric); Z99.89 Dependence on other enabling machines and devices; Z88.5 Allergy status to narcotic agent; Z79.82 Long term (current) use of aspirin; Z79.84 Long term (current) use of oral hypoglycemic drugs; Z79.890 Hormone replacement therapy; Z79.899 Other long term (current) drug therapy
CPT/HCPCS: 43239; 45378; 88305; J2405; J3010

== ENCOUNTER → 2024-08-26 | Outpatient (CLI) | payer MEDICARE ==
[~2024-08-26] MED LIST changes: -NS 250 ML IV ONE
[2024-08-26 14:31] LABS: BASO # 0.1 10^3/uL (0.0-0.2); BASO % 1.3 % (0.0-1.0); EOS # 0.3 10^3/uL (0.0-0.5); EOS % 4.1 % (0.0-3.0); HEMATOCRIT 35.3 % (36.0-47.0); HEMOGLOBIN 10.8 g/dl (12.0-15.5); LYMPH # 1.7 10^3/uL (1.5-5.0); LYMPH % 24.4 % (24.0-44.0); MEAN CORPUSCULAR HEMOGLOBIN 25.5 pg (27.0-33.0); MEAN CORPUSCULAR HGB CONC 30.6 g/dl (32.0-36.5); MEAN CORPUSCULAR VOLUME 83.3 fl (80.0-96.0); MONO # 0.4 10^3/uL (0.0-0.8); MONO % 6.5 % (2.0-8.0); NEUTROPHILS # 4.3 10^3/uL (1.5-8.5); NEUTROPHILS % 63.4 % (36.0-66.0); PLATELET COUNT, AUTOMATED 254 10^3/uL (150-450); RED BLOOD COUNT 4.24 10^6/uL (4.00-5.40); WHITE BLOOD COUNT 6.8 10^3/uL (4.0-10.0)
[2024-08-26 14:38] LABS: ALBUMIN 3.8 G/DL (3.2-5.2); ALKALINE PHOSPHATASE 84 U/L (35-104); ALT/SGPT 27 U/L (7.0-40); AST/SGOT 24 U/L (<34); BILIRUBIN,TOTAL 0.3 MG/DL (0.3-1.2); BLOOD UREA NITROGEN 22 MG/DL (9-23); CALCIUM LEVEL 9.7 MG/DL (8.3-10.6); CARBON DIOXIDE LEVEL 26 MMOL/L (20-31); CHLORIDE LEVEL 105 MMOL/L (98-107); CHOLESTEROL LEVEL 159 MG/DL (<200); CHOLESTEROL RISK RATIO 3.68 (<5); CREATININE FOR GFR 0.94 MG/DL (0.55-1.30); GLOMERULAR FILTRATION RATE > 60.0 (>45); GLUCOSE, FASTING 161 MG/DL (74-106); HDL CHOLESTEROL 43.1 MG/DL (>40); IRON (FE) 47 UG/DL (50-170); LDL CHOLESTEROL 72.3 MG/DL (<100); MAGNESIUM LEVEL 1.6 MG/DL (1.8-2.4); NON-HDL-C 115.9 MG/DL; PERCENT SATURATION 11.3 % (13.2-45.0); POTASSIUM SERUM 4.5 MMOL/L (3.5-5.1); SODIUM LEVEL 141 MMOL/L (136-145); TOTAL IRON BINDING CAPACITY 415 UG/DL (250-425); TOTAL PROTEIN 7.7 G/DL (5.7-8.2); TRIGLYCERIDES LEVEL 218 MG/DL (<150)
[2024-08-26 14:40] LABS: FERRITIN 6.6 NG/ML (7.3-270.7); FREE T4 1.51 NG/DL (0.89-1.76); THYROID STIMULATING HORMONE 0.124 uIU/ML (0.55-4.78)
[2024-08-26 15:19] LABS: MAU/CREAT RATIO 2.6 MCG/MG (0.0-30.0)
[2024-08-26 15:27] LABS: HEMOGLOBIN A1c 6.6 % (4.0-6.0)
== END ==
LOC: M PLALAB 10:18
PROVIDERS: ATTEND Student in an Organized Health Care Education/Training Program
DX: I10 Essential (primary) hypertension (principal); E55.9 Vitamin D deficiency, unspecified; D50.9 Iron deficiency anemia, unspecified; E11.22 Type 2 diabetes mellitus with diabetic chronic kidney disease; E83.42 Hypomagnesemia; E03.9 Hypothyroidism, unspecified

== ENCOUNTER → 2025-01-06 | Outpatient (REF) | payer MEDICARE ==
[~2025-01-06] MED LIST changes: +GNP250TA9 PO; +HYDR12.510 PO; -HYDR12CA PO; +IRON27TA2 PO; +SYNT137T7 PO; +VITA100093 PO
== END ==
LOC: M SFHCPLAZ 13:44
PROVIDERS: ATTEND Family Medicine
DX: Z53.9 Procedure and treatment not carried out, unspecified reason (principal)

== ENCOUNTER → 2025-01-06 | Outpatient (CLI) | payer MEDICARE ==
[2025-01-06 15:22] LABS: PLATELET COUNT, AUTOMATED 266 10^3/uL (150-450)
[2025-01-06 15:33] LABS: ALT/SGPT 32.0 U/L (7.0-40); AST/SGOT 38.0 U/L (<34); CALCIUM LEVEL 9.2 MG/DL (8.3-10.6); CARBON DIOXIDE LEVEL 26.0 MMOL/L (20-31); CHLORIDE LEVEL 103.0 MMOL/L (98-107); CHOLESTEROL LEVEL 153.0 MG/DL (<200); CHOLESTEROL RISK RATIO 3.34 (<5); CREATININE FOR GFR 0.96 MG/DL (0.55-1.30); GLOMERULAR FILTRATION RATE 64.5 (>45); LDL CHOLESTEROL 75.3 MG/DL (<100); NON-HDL-C 107.3 MG/DL; POTASSIUM SERUM 4.3 MMOL/L (3.5-5.1); PTH INTACT 46.4 PG/ML (18.5-88.0); SODIUM LEVEL 141.0 MMOL/L (136-145); TRIGLYCERIDES LEVEL 160.0 MG/DL (<150)
[2025-01-06 15:34] LABS: FREE T4 1.63 NG/DL (0.89-1.76)
[2025-01-06 16:40] LABS: ESTIMATED AVERAGE GLUCOSE 171.0 MG/DL (60-110)
== END ==
LOC: M PLALAB 13:59
PROVIDERS: ATTEND Family Medicine
DX: N18.31 Chronic kidney disease, stage 3a (principal); Z79.899 Other long term (current) drug therapy

== ENCOUNTER → 2025-02-11 | Outpatient (CLI) | payer MEDICARE | LOC: M WHC 14:51 | PROVIDERS: ATTEND Family Medicine | DX: L30.1 Dyshidrosis [pompholyx] (principal) ==

== ENCOUNTER → 2025-03-04 | Outpatient (CLI) | payer MEDICARE | LOC: M WHC 13:39 | PROVIDERS: ATTEND Family Medicine | DX: Z12.31 Encounter for screening mammogram for malignant neoplasm of breast (principal); R92.313 Mammographic fatty tissue density, bilateral breasts ==

== ENCOUNTER → 2025-04-13 | Outpatient (REF) | payer MEDICARE ==
[2025-04-15 16:03] LABS: HPV APTIMA Not Detected (Not Detected)
== END ==
LOC: M SFHCWAGY 15:13
PROVIDERS: ATTEND Physician Assistant
DX: Z12.4 Encounter for screening for malignant neoplasm of cervix (principal)
CPT/HCPCS: 87624; G0123

== ENCOUNTER → 2025-04-28 | Outpatient (CLI) | payer MEDICARE ==
[2025-04-28 16:02] LABS: PLATELET COUNT, AUTOMATED 254 10^3/uL (150-450)
[2025-04-28 16:06] LABS: ALT/SGPT 27.0 U/L (7.0-40); AST/SGOT 30.0 U/L (<34); CALCIUM LEVEL 9.0 MG/DL (8.3-10.6); CARBON DIOXIDE LEVEL 29.0 MMOL/L (20-31); CHLORIDE LEVEL 103.0 MMOL/L (98-107); CHOLESTEROL LEVEL 134.0 MG/DL (<200); CHOLESTEROL RISK RATIO 3.06 (<5); CREATININE FOR GFR 0.92 MG/DL (0.55-1.30); FREE T4 1.57 NG/DL (0.89-1.76); GLOMERULAR FILTRATION RATE 67.8 (>45); LDL CHOLESTEROL 68.3 MG/DL (<100); NON-HDL-C 90.3 MG/DL; POTASSIUM SERUM 4.7 MMOL/L (3.5-5.1); SODIUM LEVEL 142.0 MMOL/L (136-145); TRIGLYCERIDES LEVEL 110.0 MG/DL (<150)
[2025-04-28 16:57] LABS: ESTIMATED AVERAGE GLUCOSE 177.0 MG/DL (60-110)
== END ==
LOC: M PLALAB 11:57
PROVIDERS: ATTEND Family Medicine
DX: Z00.00 Encounter for general adult medical examination without abnormal findings (principal)

== ENCOUNTER → 2025-04-28 | Outpatient (REF) | payer MEDICARE | LOC: M SFHCPLAZ 11:36 | PROVIDERS: ATTEND Family Medicine | DX: Z53.9 Procedure and treatment not carried out, unspecified reason (principal) ==

== ENCOUNTER → 2025-05-05 | Outpatient (REF) | payer MEDICARE | LOC: M SFHCPLAZ 07:49 | PROVIDERS: ATTEND Family Medicine | DX: Z53.9 Procedure and treatment not carried out, unspecified reason (principal) ==